=== PATIENT | female | born 1985 ===

== ENCOUNTER 2017-02-01 14:05 | Emergency (ER) | payer OTHER ==
[2017-02-01 14:11] VITALS: TEMP 98.6
[2017-02-01] MEDS ORDERED: Sodium Chloride 0.9% 1,000 ML IV STA (14:22)
[2017-02-01 15:21] LABS: BASO # 0.1 K/uL (0.0-0.2); BASO % 0.6 % (0.0-2.0); EOS # 0.2 K/uL (0.0-0.7); EOS % 2.1 % (0.0-4.0); HEMATOCRIT 39.5 % (34.0-47.0); LYMPH # 3.2 K/uL (1.0-4.3); LYMPH % 26.8 % (20.0-40.0); MEAN CELL VOLUME 89.1 fl (81.0-99.0); MEAN CORPUSCULAR HEMOGLOBIN 29.4 pg (27.0-31.0); MEAN PLATELET VOLUME 11.5 fl (7.2-11.7); MONO # 0.9 K/uL (0.0-0.8); MONO % 7.7 % (0.0-10.0); NEUT # 7.5 K/uL (1.8-7.0); NEUT % 62.8 % (50.0-75.0); NRBC % 0.1 % (0.0-0.0); RED CELL DISTRIBUTION WIDTH 13.2 % (11.5-14.5); WHITE BLOOD COUNT 11.9 K/uL (4.8-10.8)
--- NOTE | 2017-02-01 15:29 | ED PDOC ---
HPI: Abdomen Time Seen by Provider: 02/01/17 14:21 Chief Complaint (Nursing): Abdominal Pain Chief Complaint (Provider): Abdominal Pain History Per: Patient History/Exam Limitations: no limitations Onset/Duration Of Symptoms: Hrs (2 hours prior to arrival), Sudden Onset Outside of [place] travel?: No Current Symptoms Are (Timing): Still Present Context: Food (chicken and vegetables from a food truck) Severity: Moderate Location Of Pain/Discomfort: LLQ Quality Of Discomfort: Cramping Associated Symptoms: denies: Fever, Vomiting, Diarrhea, Urinary Symptoms Additional Complaint(s): Roseanna Kenney is a 31 year old female, with no pertinent past medical history, who presents to the emergency department for the evaluation of an acute onset of abdominal pain, that began 2 hours prior to arrival after eating chicken and vegetables from a food truck. Denies a fever, vomiting, diarrhea, or urinary symptoms. PMD: none specified Past Medical History Reviewed: Historical Data, Nursing Documentation, Vital Signs Vital Signs: Last Vital Signs Temp 98.6 F 02/01/17 14:07 Pulse 87 02/01/17 14:07 Resp 19 02/01/17 14:07 BP 139/80 02/01/17 14:07 Pulse Ox - Medical History PMH: No Chronic Diseases Denies: Chronic Kidney Disease - Surgical History Surgical History: No Surg Hx - Family History Family History: States: No Known Family Hx - Social History Current smoker - smoking cessation education provided: No Ex-Smoker (has not smoked in the last 12 months): No Alcohol: Social Drugs: Denies - Immunization History Hx Tetanus Toxoid Vaccination: No Hx Influenza Vaccination: No Hx Pneumococcal Vaccination: No - Home Medications Home Medications: Ambulatory Orders Medication Instructions Recorded DiphenhydrAMINE [Benadryl] 25 mg PO Q4H PRN #30 cap 09/21/16 Prednisone 50 mg PO DAILY #5 tablet 09/21/16 Dicyclomine [Dicyclomine HCl] 10 mg PO TID PRN #10 cap 02/01/17 Ibuprofen [Motrin Tab] 600 mg PO Q6 PRN #15 tab 02/01/17 - Allergies Allergies/Adverse Reactions: Allergies Allergy/AdvReac Type Severity Reaction Status Date / Time CATS Allergy Intermediate REDNESS Uncoded 02/01/17 14:11 Review of Systems ROS Statement: Except As Marked, All Systems Reviewed And Found Negative Constitutional: Negative for: Fever Gastrointestinal: Positive for: Abdominal Pain. Negative for: Vomiting, Diarrhea Genitourinary Female: Negative for: Dysuria, Hematuria Physical Exam - Reviewed Nursing Documentation Reviewed: Yes Vital Signs Reviewed: Yes - Physical Exam Appears: Positive for: Non-toxic, No Acute Distress Head Exam: Positive for: ATRAUMATIC, NORMOCEPHALIC Skin: Positive for: Normal Color, Warm, Dry Cardiovascular/Chest: Positive for: Regular Rate, Rhythm. Negative for: Murmur Respiratory: Positive for: Normal Breath Sounds. Negative for: Respiratory Distress Gastrointestinal/Abdominal: Positive for: Normal Exam, Soft, Tenderness (LLQ), Distended (mild), Guarding Back: Positive for: Normal Inspection. Negative for: L CVA Tenderness, R CVA Tenderness Neurologic/Psych: Positive for: Alert, Oriented - Laboratory Results Result Diagrams: 02/01/17 15:00 02/01/17 15:00 Medical Decision Making Medical Decision Makin:21 Initial Impression: Abdominal pain r/o Volvulus Initial Plan: * CT Abd & Pelvis w/ IV Contrast * Complete Blood Count * Comprehensive Metabolic Panel * Lipase * Urine Dip * Urine * Bentyl 10 mg PO * Sodium Chloride 0.9% 1,000 ml IV at 1,000 mls/hr * Zofran 4 mg IV * Reevaluation labs reviewed, clinically unremarkable Upreg neg CT: Accession No. : [id number] Patient Name / ID : NOEMÍ ROBERTO / [id number] Exam Date : 02/01/2017 17:09:45 ( Approved ) Study Comment : Sex / Age : F / 31Y Creator : Jose Alberto Orr MD Dictator : Jose Alberto Orr MD Insurance Inspector : Dolphin Trainer : Jose Alberto Orr MD Approver2 : Report Date : 02/01/2017 17:54:11 My Comment : PROCEDURE: CT Abdomen and Pelvis with contrast HISTORY: Abdominal pain, distension, LLQ tenderness COMPARISON: None. TECHNIQUE: Contrast dose: 90 cc Omnipaque 300. Radiation dose: Total exam DLP = 584.94 mGy-cm. This CT exam was performed using one or more of the following dose reduction techniques: Automated exposure control, adjustment of the mA and/or kV according to patient size, and/or use of iterative reconstruction technique. FINDINGS: LOWER THORAX: Unremarkable. LIVER: Hepatic steatosis. No focal masses. No intrahepatic bile duct dilatation or perihepatic ascites. GALLBLADDER AND BILE DUCTS: Unremarkable. PANCREAS: Unremarkable. No gross lesion or ductal dilatation. SPLEEN: Unremarkable. ADRENALS: Unremarkable. No mass. KIDNEYS AND URETERS: Unremarkable. No hydronephrosis. No solid mass. VASCULATURE: Unremarkable. No aortic aneurysm. BOWEL: Unremarkable. No obstruction. No gross mural thickening. Constipation without fecal impaction or obstruction. APPENDIX: Normal appendix. PERITONEUM: Unremarkable. No free fluid. No free air. LYMPH NODES: Unremarkable. No enlarged lymph nodes. BLADDER: Unremarkable. REPRODUCTIVE: Unremarkable. BONES: No acute fracture. OTHER FINDINGS: None. IMPRESSION: No acute findings related to/accounting for the clinical presentation. Additional benign and/or incidental findings described above. -------- On re-eval at 630p, improved states pain resolved. Rx bentyl and motrin, followup PMD or GI, return ER if symptoms return. Scribe Attestation: Documented by Carlito Baird, acting as a scribe for Mtich Snowden III, MD. Provider Scribe Attestation: All medical record entries made by the Scribe were at my direction and personally dictated by me. I have reviewed the chart and agree that the record accurately reflects my personal performance of the history, physical exam, medical decision making, and the department course for this patient. I have also personally directed, reviewed, and agree with the discharge instructions and disposition. Disposition - Clinical Impression Clinical Impression: Abdominal pain - Patient ED Disposition Is Patient to be Admitted: No Counseled Patient/Family Regarding: Studies Performed, Diagnosis, Need For Followup - Disposition Referrals: [facility] [Outside] Disposition: Routine/Home Disposition Time: 18:25 Condition: STABLE Additional Instructions: Followup with clinic for further testing. Return to ER for any new or worsening symptoms. Prescriptions: Dicyclomine [Dicyclomine HCl] 10 mg PO TID PRN #10 cap PRN Reason: Gi Distress Ibuprofen [Motrin Tab] 600 mg PO Q6 PRN #15 tab PRN Reason: Pain, Moderate (4-7) Instructions: Acute Abdominal Pain (ED) Print Language: SWEDISH
[2017-02-01 15:32] LABS: ALB/GLOB RATIO 1.3 (1.0-2.1); ALKALINE PHOSPHATASE 45 U/L (38-126); ALT/SGPT 28 U/L (9-52); AST/SGOT 22 U/L (14-36); BILIRUBIN,TOTAL 0.3 mg/dl (0.2-1.3); BLOOD UREA NITROGEN 14 mg/dl (7-17); CALCIUM 9.6 mg/dL (8.4-10.2); CARBON DIOXIDE 26 mmol/L (22-30); CHLORIDE 102 mmol/L (98-107); GFR AFRICAN-AMERICAN > 60; GLUCOSE,RANDOM 90 mg/dL (65-105); LIPASE 147 U/L (23-300); POTASSIUM 4.1 MMOL/L (3.6-5.0); SODIUM 138 mmol/l (132-148); TOTAL PROTEIN 7.7 G/DL (6.3-8.2)
[2017-02-01] MEDS ORDERED: Sodium Chloride 0.9% 50 ML IV ONE (16:51)
[2017-02-01] MEDS ORDERED: Iohexol 300 100 ML IJ ONE (16:51)
--- NOTE | 2017-02-01 17:56 | CT ---
PROCEDURE: CT Abdomen and Pelvis with contrast HISTORY: Abdominal pain, distension, LLQ tenderness COMPARISON: None. TECHNIQUE: Contrast dose: 90 cc Omnipaque 300. Radiation dose: Total exam DLP = 584.94 mGy-cm. This CT exam was performed using one or more of the following dose reduction techniques: Automated exposure control, adjustment of the mA and/or kV according to patient size, and/or use of iterative reconstruction technique. FINDINGS: LOWER THORAX: Unremarkable. LIVER: Hepatic steatosis. No focal masses. No intrahepatic bile duct dilatation or perihepatic ascites. GALLBLADDER AND BILE DUCTS: Unremarkable. PANCREAS: Unremarkable. No gross lesion or ductal dilatation. SPLEEN: Unremarkable. ADRENALS: Unremarkable. No mass. KIDNEYS AND URETERS: Unremarkable. No hydronephrosis. No solid mass. VASCULATURE: Unremarkable. No aortic aneurysm. BOWEL: Unremarkable. No obstruction. No gross mural thickening. Constipation without fecal impaction or obstruction. APPENDIX: Normal appendix. PERITONEUM: Unremarkable. No free fluid. No free air. LYMPH NODES: Unremarkable. No enlarged lymph nodes. BLADDER: Unremarkable. REPRODUCTIVE: Unremarkable. BONES: No acute fracture. OTHER FINDINGS: None. IMPRESSION: No acute findings related to/accounting for the clinical presentation. Additional benign and/or incidental findings described above.
[2017-02-01 19:11] VITALS: BP 120/73; PULSE 83; RESP 16; O2SAT 99
== END 2017-02-01 19:11 | disposition home or self-care (01) ==
LOC: H.ER 14:05
DX: R10.9 Unspecified abdominal pain (principal); Z87.891 Personal history of nicotine dependence